=== PATIENT | female | born 1955 | race Caucasian/White ===

== ENCOUNTER 2023-09-19 06:36 | Day surgery (SDC) | payer OTHER ==
[2023-09-17 13:42] LABS: BILIRUBIN,URINE NEGATIVE (NEGATIVE); CLARITY/URINE CLEAR (CLEAR); COLOR,URINE YELLOW (YELLOW); GLUCOSE,URINE NEGATIVE (NEGATIVE); KETONES,URINE TRACE (NEGATIVE); LEUKOCYTE ESTERASE ,URINE TRACE (NEGATIVE); NITRITE, URINE POSITIVE (NEGATIVE); PROTEIN URINE NEGATIVE (NEGATIVE); UROBILINOGEN,URINE 0.2 (0.2-1.0)
[2023-09-17 13:44] LABS: BASOPHILS # (AUTO) 0.1 K/uL (0.0-0.2); BASOPHILS % (AUTO) 1.1 % (0.0-2.0); EOSINOPHILS # (AUTO) 0.2 K/uL (0.0-0.4); EOSINOPHILS % (AUTO) 2.1 % (0.0-4.0); HEMOGLOBIN 12.9 g/dL (12.0-16.0); LYMPHOCYTES # (AUTO) 1.9 K/uL (1.0-5.5); LYMPHOCYTES % (AUTO) 17.8 % (20.5-51.5); MEAN CORPUSCULAR HEMOGLOBIN 30 pg (27-31); MEAN CORPUSCULAR HGB CONC 33 % (32-36); MEAN CORPUSCULAR VOLUME 92 fL (79.0-98.0); MONOCYTES # (AUTO) 0.7 K/uL (0.0-1.0); NEUTROPHILS # (AUTO) 7.7 K/uL (1.8-7.7); PLATELET COUNT (AUTO) 330 K/uL (130-430); RED BLOOD CELL COUNT(AUTO) 4.26 MIL/uL (4.2-6.2); RED CELL DISTRIBUTION WIDTH 12.8 % (9.0-15.0); WHITE BLOOD COUNT (AUTO) 10.7 K/uL (4.8-10.8)
[2023-09-17 13:46] LABS: BLOOD, URINE TRACE (NEGATIVE)
[2023-09-17 13:57] LABS: BACTERIA,URINE MANY /HPF (None Seen); MUCUS,URINE 1+ /LPF (None Seen); RBC,URINE 0-3 /HPF (0-3)
[~2023-09-19] VITALS: Ht 165.1 cm; Wt 90.3 kg
[~2023-09-19 06:36] MED LIST: ESTR0.5T4 PO; LISI10TA29 PO; [UNRECOGNIZED DRUG - CODE] PO
[2023-09-19] MEDS ORDERED: ceFAZolin SODIUM 2 GM in D5W 100 ML IV ONE (07:00)
[2023-09-19] MEDS ORDERED: MORPHINE 4 MG INJ. 4 MG/ML VIAL ONE (07:14)
[2023-09-19] MEDS ORDERED: fentaNYL CITRATE/PF 100 MCG/2 ML AMP ONE (07:14)
[2023-09-19] MEDS ORDERED: MIDAZOLAM HCL 2 MG/2 ML VIAL (VERSED) ONE (07:15)
[2023-09-19] MEDS ORDERED: ONDANSETRON HCL 4 MG/2 ML VIAL IVP PRN ×2 (07:45→10:15)
[2023-09-19] MEDS ORDERED: LR 1,000 ML IV SCH (07:45)
[2023-09-19] MEDS ORDERED: HYDROmorphone 1 MG/ML INJ. CARTRIDGE IVP PRN (07:45)
[2023-09-19] MEDS ORDERED: MEPERIDINE HCL/PF 25 MG/ML DISP.SYRIN IVP PRN (07:45)
[2023-09-19] MEDS ORDERED: MORPHINE 4 MG INJ. 4 MG/ML VIAL IVP PRN (07:45)
[2023-09-19] MEDS ORDERED: ONDANSETRON HCL 4 MG/2 ML VIAL ONE ×2 (08:01→10:31)
[2023-09-19] MEDS ORDERED: BUPIVACAINE /PF 0.25% 30 ML VIAL INJ ONE (08:01)
[2023-09-19] MEDS ORDERED: NS IRRIG SOLN 1000 ML IR ONE (08:01)
[2023-09-19] MEDS ORDERED: DEXAMETHASONE SOD PHOSPHATE 4 MG/ML VIAL ONE (08:01)
[2023-09-19] MEDS ORDERED: ISOFLURANE 15 MIN GAS INH ONE (08:01)
[2023-09-19] MEDS ORDERED: KETOROLAC TROMETHAMINE 30 MG VIAL ONE ×2 (08:01→10:31)
[2023-09-19] MEDS ORDERED: SUGAMMADEX SODIUM 200 MG/2 ML VIAL IV ONE ×2 (08:01→10:31)
[2023-09-19] MEDS ORDERED: SUCCINYLCHOLINE CHLORIDE 20 MG/ML(QUELICIN) ONE ×2 (08:01→10:31)
[2023-09-19] MEDS ORDERED: LR 1,000 ML IV.SOLN IV ONE ×2 (08:01→10:31)
[2023-09-19] MEDS ORDERED: ROCURONIUM BROMIDE 10 MG/ML (ZEMURON) ONE ×2 (08:01→10:31)
[2023-09-19] MEDS ORDERED: NS 1000 ML IV.SOLN IV ONE (08:01)
[2023-09-19] MEDS ORDERED: PROPOFOL 200MG/ 20ML VIAL (DIPRIVAN) IV ONE ×2 (08:01→10:31)
[2023-09-19] MEDS ORDERED: OXYCODONE/ACETAMINOPHEN 5-325 TABLET PO PRN ×2 (10:15)
[2023-09-19] MEDS ORDERED: HYDROcodone/ACETAMIN 5-325 MG TAB (NORCO/ VICODIN) PO PRN (10:15)
[2023-09-19] MEDS ORDERED: GLYCOPYRROLATE 0.2 MG/ML VIAL ONE (10:31)
[2023-09-19] MEDS ORDERED: DESFLURANE 15 MIN GAS INH ONE (10:31)
[2023-09-19 11:13] VITALS: O2SAT 99
[2023-09-19 15:16] VITALS: BP_SYST 130; PULSE 93; RESP 16
== END 2023-09-19 14:05 | disposition home or self-care (01) ==
LOC: SMU 06:36 → SDS 06:36
PROVIDERS: ATTEND Specialist
DX: N95.0 Postmenopausal bleeding (principal); R87.619 Unspecified abnormal cytological findings in specimens from cervix uteri; N83.201 Unspecified ovarian cyst, right side; N84.0 Polyp of corpus uteri; N83.202 Unspecified ovarian cyst, left side; I10 Essential (primary) hypertension; Z79.01 Long term (current) use of anticoagulants; Z79.890 Hormone replacement therapy; Z79.899 Other long term (current) drug therapy
CPT/HCPCS: 81000; 87081; 81001; 84702; 85025; 87086; 36415; 58661; 58558; 88108; 88305; J3490 ×3; J1100; J1885; J3465; J2405; J2704; J0330; J3010; J2270; J7060; J7120; J7030; C1727; 81015